=== PATIENT | male | born 1965 | race Caucasian/White ===

== ENCOUNTER 2023-08-14 12:10 | Outpatient (OUT) | payer MEDICAID, SELFPAY ==
--- NOTE | 2023-08-14 12:28 | XR_ITS ---
[place] [id number] Patient Name: JOSE VAZQUEZ MRN: [id number] date: 1965 Sex: M Assigned Patient Location: RAD Current Patient Location: [facility] Accession/Order Number: [id number] Exam Date: 08/14/2023 12:23 Report Date: 08/14/2023 15:34 At the request of: TANESHA DELGADO Procedure: XR knee LT 2V PROCEDURE: XR knee LT 2V COMPARISON: None. 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 Moderate enthesopathic spurring of the patella at the quadriceps and patellar insertions SOFT TISSUES:Negative. No visible soft tissue swelling. EFFUSION:None visible. OTHER: Negative. XR/XR knee LT 2V IMPRESSION: No acute abnormality Electronically authenticated by: COURTNEY MADDOX Date: 08/14/2023 15:34
== END 2023-08-14 12:11 | disposition home or self-care (01) ==
LOC: RAD 12:14
PROVIDERS: PCP Family Medicine; Visit Provider Family Medicine
DX: M25.562 Pain in left knee (principal); G89.29 Other chronic pain
CPT/HCPCS: 73560

== ENCOUNTER 2024-03-29 09:33 | Emergency (ER) | payer OTHER, SELFPAY ==
[2024-03-29 09:36] VITALS: BP 148/80; PULSE 84; TEMP 36.4; O2SAT 98; BMI 28.3
--- NOTE | 2024-03-29 09:42 | XR_ITS ---
The [address] [address] Patient Name: JOSE VAZQUEZ MRN: [id number] date: 1965 Sex: M Assigned Patient Location: ER Current Patient Location: ED.MAIN Accession/Order Number: [id number] Exam Date: 03/29/2024 09:52 Report Date: 03/29/2024 10:04 At the request of: YULISA SKINNER Procedure: XR foot RT min 3V PROCEDURE: XR foot RT min 3V HISTORY: injury ; lateral right foot pain since injury 5 days ago COMPARISON: None. FINDINGS: BONES:Prominent accessory ossicle lateral-plantar to the cuboid. No appreciable fracture or dislocation. Separate ossifications distal to the medial malleolus favoring sequela of remote injuries. SOFT TISSUES:No visible soft tissue swelling. EFFUSION:None visible. OTHER: Negative. XR/XR foot RT min 3V IMPRESSION: 1. No appreciable acute bone abnormality. Electronically authenticated by: KEVIN HERNANDEZ Date: 03/29/2024 10:04
--- NOTE | 2024-03-29 09:44 | ED_ITS ---
HPI HPI - Extremity Injury (Lower) General Chief Complaint: Extremity Injury, Lower Stated Complaint: LOWER EXTREMITY INJURY [facility] Time Seen by Provider: 03/29/24 09:39 Source: patient Mode of arrival: walk-in Limitations: no limitations History of Present Illness HPI Narrative: 59-year-old male presents to the emergency department for a chief complaint of right foot pain. He states he rolled it at work 4 days ago. He points to the lateral aspect and the dorsum of his foot. The ankle does not hurt and he has been able to walk on it. The pain is moderate. Related Data Allergies Allergy/AdvReac Type Severity Reaction Status Date / Time No Known Drug Allergies Allergy Verified 03/29/24 09:36 Opioid HPI Opioid Management Most Recent Pain and Opioid Data: No Data to Display Review of Systems ROS Narrative A ten point review of systems is negative except as noted above. PFSH PFSH Social History Little interest or pleasure in doing things: not at all Feeling down, depressed, or hopeless: not at all Exam Narrative Exam Narrative: Nurses note and vital signs reviewed and patient is not hypoxic. General: The patient appears well and in no apparent distress. Skin: Warm, dry, no pallor noted. There is no rash noted. Head: Normocephalic, atraumatic Eye: Normal conjunctiva, no drainage Ears, Nose, Mouth, and Throat: oral mucosa is moist. Nares patent. Cardiovascular: Regular Rate and Rhythm Respiratory: Patient is in no distress, no accessory muscle use GI: Normal bowel sounds, no tenderness to palpation, no masses appreciated. No rebound, guarding, or rigidity noted. Musculoskeletal: The right ankle is nontender. He has diffuse tenderness across the dorsum of the foot and on the lateral aspect. No break in the skin. Neurological: A&O, normal speech Psychiatric: Cooperative Constitutional Vital Signs, click to edit/add: Last Vital Signs Temp 97.6 F 03/29/24 09:36 Pulse 84 03/29/24 09:36 Resp 18 03/29/24 09:36 BP 148/80 H 03/29/24 09:36 Pulse Ox 98 03/29/24 09:36 Course Vital Signs Vital signs: Vital Signs Temperature 97.6 F 03/29/24 09:36 Pulse Rate 84 03/29/24 09:36 Respiratory Rate 18 03/29/24 09:36 Blood Pressure 148/80 H 03/29/24 09:36 Pulse Oximetry 98 03/29/24 09:36 Temperature 97.6 F 03/29/24 09:36 Pulse Rate 84 03/29/24 09:36 Respiratory Rate 18 03/29/24 09:36 Blood Pressure 148/80 H 03/29/24 09:36 Pulse Oximetry 98 03/29/24 09:36 MDM - Extremity Injury (Lower) MDM Narrative Medical decision making narrative: X-rays negative per radiologist. My clinical impression is that he has a sprained foot. Treatment diagnosis and follow-up were discussed with the patient. Differential Diagnosis Differential diagnosis: Likely other (Foot fracture, foot sprain) Imaging Data Foot x-ray: Radiologist's impression: ITS Impressions Foot X-Ray 03/29/24 09:42 IMPRESSION: 1. No appreciable acute bone abnormality. Electronically authenticated by: KEVIN HERNANDEZ Date: 03/29/2024 10:04 Discharge Plan Discharge Chief Complaint: Extremity Injury, Lower Clinical Impression: Right foot sprain Patient Disposition: Home, Self-Care Time of Disposition Decision: 10:12 Condition: Good Mode of Transportation: Private Vehicle Print Language: Burkinan Instructions: Foot Sprain (ED) Referrals: Nabeel Thornton MD [Primary Care Provider] - 1 week
--- OUTSIDE RECORDS SUMMARY | 2024-03-29 09:53 | XMS_ITS | CCD ---
Author Organization [facility] Care Team Providers Care Kennel Manager Name Role Phone Mel Fry Unavailable JOSEPHINE, PEGGY Admitting Unavailable NADERER, DR TANESHA Monroe Primary Care Unavailable JOSEPHINE, PEGGY Attending Unavailable JOSEPHINE, PEGGY Consulting Unavailable JOSEPHINE, PEGGY Admitting Unavailable NADERER, DR TANESHA Monroe Primary Care Unavailable JOSEPHINE, PEGGY Attending Unavailable JOSEPHINE, PEGGY Admitting Unavailable AICHHOLTayla, FRANCISCO DALAL Primary Care Unavailable JOSEPHINE, PEGGY Attending Unavailable ZIEBER, DR KEVIN Reid Consulting Unavailable NADERER, DR TANESHA Monroe Admitting Unavailable NADERER, DR TANESHA Monroe Attending Unavailable NADERER, DR TANESHA Monroe Primary Care Unavailable NADERER, DR TANESHA Monroe Consulting Unavailable TALBERT, DR BRANDY Alexander Consulting Unavailable ZIEBER, DR KEVIN Reid Consulting Unavailable NADERER, DR TANESHA Monroe Attending Unavailable NADERER, DR TANESHA Monroe Primary Care Unavailable NADERER, DR TANESHA Monroe Admitting Unavailable NADERER, DR TANESHA Monroe Consulting Unavailable JOSEPHINE, PEGGY Consulting Unavailable JOSEPHINE, PEGGY Admitting Unavailable NADERER, DR TANESHA Monroe Primary Care Unavailable JOSEPHINE, PEGGY Attending Unavailable JOSEPHINE, PEGGY Admitting Unavailable NADERER, DR TANESHA Monroe Primary Care Unavailable JOSEPHINE, PEGGY Attending Unavailable Sydnie Downs Unavailable TANESHA DELGADO Attending Unavailable Medications Current Medications Medication Drug Class(es) Dates Sig (Normalized) Sig (Original) acetaminophen 325 mg / butalbital 50 mg / caffeine 40 mg oral tablet (2 sources) Barbiturate, Central Nervous System Stimulant, Methylxanthine Trtzhsyrgr-ZJZJ-H affeine 50-325-40 MG take 1 tablet by mouth every 6 hours if needed for headache up to 10 days Oral for 10 Days Active dextromethorphan hydrobromide 1.5 mg/ml / pyrilamine maleate 1.5 mg/ml oral solution (2 sources) Uncompetitive E-qlvobc-J-aspartat e Receptor Antagonist, Sigma-1 Agonist Start: 06-22-2023 take 10 mL by mouth every eight hours [place] DM 7.5-7.5 MG/5ML 10 mL Orally every 8 hours for 5 days Jun, Active prednisoLONE 3 mg/ml oral solution (2 sources) Corticosteroid Start: 06-23-2023 take 10 mL by mouth twice daily prednisoLONE 15 MG/5ML 10 mL Orally BID for 5 days Jun, Active Completed/Discontinued Medications Medication Drug Class(es) Dates Sig (Normalized) Sig (Original) cephalexin 500 mg oral capsule (3 sources) Cephalosporin Antibacterial Start: 05-11-2022 take 1 capsule by mouth every eight hours Cephalexin 500 MG 1 capsule Orally three times a day for 10 day(s) May, Not-Taking/PRN cyclobenzaprine hydrochloride 10 mg oral tablet (9 sources) Muscle Relaxant Start: 08-13-2021 take 1 tablet by mouth three times daily as needed Cyclobenzaprine HCl 10 MG 1 tab(s) Orally tid prn Oct, Not-Taking/PRN Ketorolac (4 sources) Nonsteroidal Anti-inflammatory Drug, Cyclooxygenase Inhibitor Start: 01-24-2020 Toradol per 15 mg Dec, 30 mg predniSONE 20 mg oral tablet (11 sources) Start: 08-13-2021 take 1 tablet by mouth every twelve hours predniSONE 20 MG 1 tablet Orally bid for 5 day(s) Oct, Not-Taking/PRN Triamcinolone (4 sources) Corticosteroid Start: 01-24-2020 KENALOG - 10 mg Dec, 40 mg Problems Active Problems Problem Classification Problem Date Documented Da te Episodic/Chronic Other upper respiratory infections (1 source) Acute upper respiratory infection, unspecified Episodic Spondylosis; intervertebral disc disorders; other back problems (5 sources) Spondylosis without myelopathy or radiculopathy, lumbar region; Translations: [Other spondylosis with radiculopathy, lumbar region] Onset: 12-29-2021 Chronic Spondylosis; intervertebral disc disorders; other back problems (10 sources) Sciatica; Translations: [Sciatica, right side] Onset: 12-22-2021 Episodic Superficial injury; contusion (1 source) Abrasion, left lower leg, initial encounter Episodic Unclassified (4 sources) LOW BACK PAIN, UNSPECIFIED; Translations: [LOW BACK PAIN, UNSPECIFIED] Onset: 12-29-2021 Past or Other Problems Problem Classification Problem Date Documented Da te Episodic/Chronic Other connective tissue disease (4 sources) Pain in right lower leg; Translations: [PAIN IN RIGHT LOWER LEG] Onset: 02-17-2022 Episodic Sprains and strains (2 sources) Strain of muscle, fascia and tendon of lower back, initial encounter; Translations: [Strain of muscle and tendon of unspecified wall of thorax, subsequent encounter] Onset: 08-13-2021 Resolved: 11-03-2021 Episodic Unclassified (1 source) LOW BACK PAIN, UNSPECIFIED; Translations: [LOW BACK PAIN, UNSPECIFIED] Onset: 12-24-2021 Results Test Name Value Interpretation Reference Range Facil ity US LC DOP LEG RTon 02-19-20 US LC DOP LEG RT EXAMINATION: US LC DOP LEG RT HISTORY: Pain of right lower leg ; right calf swelling COMPARISON: No relevant comparison available. FINDINGS: REGION: Right lower extremity THROMBI: None. COMPRESSIBILITY: Normal compressibility. FLOW: Normal waveform and antegrade flow between 5 and 20 cm/s. OTHER: None. IMPRESSION: 1. No deep vein thrombus within the right lower extremity. Electronically authenticated by: KEVIN HERNANDEZ Date: 2022-02-18 06:23 Normal [facility] XR CSPINE 2_3 VIEWSon 2021 XR CSPINE 2_3 VIEWS EXAMINATION: XR CSPINE 2_3 VIEWS HISTORY: Neck pain , chronic; right leg pain COMPARISON: No relevant comparison available. FINDINGS: BONES: Slight reversal of the normal lordotic curvature. No fracture or significant spondylolisthesis. Minimal degenerative facet arthropathy. DISC SPACES: Suspect mild narrowing C5-C6 and C6-C7. PARASPINOUS: Negative. No paraspinous abnormality is seen. OTHER: Negative. IMPRESSION: 1. Reversal of normal lordotic curvature; positioning versus muscle spasm. 2. Suspect mild degenerative disc disease C5-C6 and C6-C7. Electronically authenticated by: KEVIN HERNANDEZ Date: 2021-12-22 14:39 Normal [facility] Vital Signs Date Time Vital Sign Value Performing Clinician Facility 06-22-2023 15:05-0500 Body height 182.88 cm Sydnie Downs Other [facility] Other 06-22-2023 15:05-0500 Body mass index (BMI) [Ratio] 36.8 kg/m2 Sydnie Downs Other [facility] Other 06-22-2023 15:05-0500 Body temperature 101 [degF] Sydnie Downs Other [facility] Other 06-22-2023 15:05-0500 Body weight 123.11 kg Sydnie Downs Other [facility] Other 06-22-2023 15:05-0500 Respiratory rate 18 /min Sydnie Downs Other [facility] Other 06-22-2023 15:05-0500 SaO2% (BldA) [Mass fraction] 97 % Sydnie Downs Other [facility] Other 05-11-2022 14:00-0500 Body height 182.88 cm Mel Fry Other [facility] Other 05-11-2022 14:00-0500 Body mass index (BMI) [Ratio] 39.19 kg/m2 Mel Lisandra Other [facility] Other 05-11-2022 14:00-0500 Body temperature 97.4 [degF] Mel Lisandra Other [facility] Other 05-11-2022 14:00-0500 Body weight 131.09 kg Mel Fry Other [facility] Other 05-11-2022 14:00-0500 Diastolic blood pressure 69 mm[Hg] Mel Lisandra Other [facility] Other 05-11-2022 14:00-0500 Respiratory rate 18 /min Mel Lisandra Other [facility] Other 05-11-2022 14:00-0500 SaO2% (BldA) [Mass fraction] 96 % Mel Lisandra Other [facility] Other 05-11-2022 14:00-0500 Systolic blood pressure 124 mm[Hg] Mel Lisandra Other [facility] Other 11-03-2021 12:05-0400 Body height 182.88 cm Mel Lisandra Other [facility] Other 11-03-2021 12:05-0400 Body mass index (BMI) [Ratio] 39.19 kg/m2 Mel Lisandra Other [facility] Other 11-03-2021 12:05-0400 Body temperature 98.7 [degF] Mel Lisandra Other [facility] Other 11-03-2021 12:05-0400 Body weight 131.09 kg Mel Lisandra Other [facility] Other 11-03-2021 12:05-0400 Diastolic blood pressure 81 mm[Hg] Mel Lisandra Other [facility] Other 11-03-2021 12:05-0400 Respiratory rate 18 /min Mel Lisandra Other [facility] Other 11-03-2021 12:05-0400 SaO2% (BldA) [Mass fraction] 97 % Mel Lisandra Other [facility] Other 11-03-2021 12:05-0400 Systolic blood pressure 131 mm[Hg] Mel Lisandra Other [facility] Other 08-13-2021 11:20-0500 Body height 182.88 cm Mel Lisandra Other [facility] Other 08-13-2021 11:20-0500 Body mass index (BMI) [Ratio] 39.33 kg/m2 Mel Lisandra Other [facility] Other 08-13-2021 11:20-0500 Body temperature 97.7 [degF] Mel Lisandra Other [facility] Other 08-13-2021 11:20-0500 Body weight 131.54 kg Mel Lisandra Other [facility] Other 08-13-2021 11:20-0500 Diastolic blood pressure 83 mm[Hg] Mel Lisandra Other [facility] Other 08-13-2021 11:20-0500 Respiratory rate 18 /min Mel Lisandra Other [facility] Other 08-13-2021 11:20-0500 SaO2% (BldA) [Mass fraction] 99 % Mel Lisandra Other [facility] Other 08-13-2021 11:20-0500 Systolic blood pressure 144 mm[Hg] Mel Lisandra Other [facility] Other Encounters Encounter Date Encounter Type Care Provider Facility Start: 07-27-2023 End: 07-27-2023 ambulatory TANESHA DELGADO Not Available Start: 06-23-2023 End: 06-23-2023 ambulatory Sydnie Downs Other [facility] Other Start: 06-23-2023 Telephone encounter Sydnie Downs [facility] Start: 06-22-2023 End: 06-22-2023 ambulatory Sydnie Himanshu Other [facility] Other Start: 06-22-2023 Office outpatient vi sit 25 minutes Sydnie Downs [facility] Start: 05-11-2022 End: 05-11-2022 ambulatory Mel Fry Other [facility] Other Start: 05-11-2022 Office outpatient vi sit 15 minutes Mel Fry [facility] Start: 02-17-2022 End: 02-18-[address] KEVIN HERNANDEZ Facility:[facility] Start: 01-25-2022 ambulatory PEGGY JOSEPHINE Facility :[facility] Start: 01-18-2022 End: 01-19-2022 ambulatory PEGGY JOSEPHINE Facility:[facility] Start: 12-31-2021 End: 01-12-2022 ambulatory PEGGY JOSEPHINE Facility:[facility] Start: 12-24-2021 End: 12-25-2021 ambulatory PEGGY JOSEPHINE Facility:[facility] Start: 12-22-2021 End: 12-23-[address] KEVIN HERNANDEZ Facility:[facility] Start: 11-19-2021 ambulatory PEGGY JOSEPHINE Facility :[facility] Start: 11-03-2021 ([facility] Mel Fry [facility] Start: 11-03-2021 End: 11-03-2021 ambulatory Mel Fry Other [facility] Other Start: 08-13-2021 End: 08-13-2021 ambulatory Mel Fry Other [facility] Other Start: 08-13-2021 Office outpatient vi sit 15 minutes Mel Lisandra [facility] Payers Date Payer Category Payer Medicaid [id number] 2. [id number] 1965 Unknown [id number] 2.16.84 [id number] 1965 Unknown [id number] 2.16.84 [id number] 1965 Unknown [id number] 2.16.84 [id number] 1965 Unknown [id number] 2.16.84 [id number] 1965 Unknown [id number] 2.16.84 [id number] 1965 Unknown [id number] 2.16.84 [id number] 1965 Unknown [id number] 2.16.84 [id number] 1965 Unknown [id number] 2.16.84 [id number] 1958 [facility] [id number] 1958 Unknown [id number] 2.1 [id number] 1958 Unknown [id number] Social History Date Type Detail Facility Unknown if ever smoked [facility] Other Sex Assigned At Sex Assigned At Bir th [facility] Other Evaluation note 06-22-2023 Note Date & Type Note Facility 06-22-2023 Evaluation note Encounter Date Diagnosis Assessment Notes Jun, Viral URI with cough (ICD-10 - J06.9) Patient declines/refuses COVID/influenza testing today in office. Advised patient that we will treat as viral URI. Will send in Rx of prednisone and [place] to use as directed. Encouraged supportive care as directed, increase fluids and rest, Tylenol as directed, cool mist humidifier, throat lozenges. Discussed infection control practices such as good hand washing and mask wearing. Advised patient that he needs to stay home from work/activities until fever free for 24 hours. Patient to follow up with PCP if symptoms persist or worsen despite treatment. Immediate eval for SOB, difficulty breathing, chest pain, fevers that do not break with antipyretic or any other concerning symptoms as reviewed on patient education handout. Patient verbalizes understanding and is agreeable to treatment plan. Patient left in stable condition. [facility] Other Evaluation note 05-11-2022 Note Date & Type Note Facility 05-11-2022 Evaluation note Encounter Date Diagnosis Assessment Notes May, Abrasion, left lower leg, initial encounter (ICD-10 - S80.812A) Keep the wound clean and dry. Take the cephalexin as prescribed until gone. Apply antibiotic ointment to the wound daily. Leave the wound open when you are home, cover when you are at work. Take Tylenol or Motrin as needed for aches pains or fevers. Follow-up with your family physician if no improvement in 2 to 3 days May, Other Abrasion home care material was printed [facility] Other Evaluation note 11-03-2021 Note Date & Type Note Facility 11-03-2021 Evaluation note Encounter Date Diagnosis Assessment Notes October, Thoracic myofascial strain, subsequent encounter (ICD-10 - S29.019D) Follow-up with your primary care physician regarding short-term disability and further evaluation of your pain. Patient reports he has dropped this is a Workmen's Comp. claim. He states this is a chronic problem. He plans to follow-up with his primary care physician for further evaluation. [facility] Other Evaluation note 08-13-2021 Note Date & Type Note Facility 08-13-2021 Evaluation note Encounter Date Diagnosis Assessment Notes Aug, Strain of lumbar region, initial encounter (ICD-10 - S39.012A) Drink plenty fluids, get plenty of rest. Take the prednisone as prescribed until gone. Take the Flexeril as prescribed as needed for back pain and stiffness. Limit your lifting and bending. Off work until Monday. Follow-up with your family physician if no improvement in 2 to 3 days. Go to the ER for worsening symptoms or concerns [facility] Other Evaluation note Note Date & Type Note Facility Evaluation note No Information [employer] Other History general Narrative - Reported Note Date & Type Note Facility History general Narrative - Reported Type Surgical History tonsillectomy Hospitalization History see above [facility] Other Summary Purpose Family History No Family History Records FoundNo Family History Records Found Advance Directives No Advanced Directives Records FoundNo Advanced Directives Records Found Additional Source Comments REASON FOR VISIT (unrecogniz ed section and content) RIGHT UPPER BACK PAIN RADIAT ING DOWN TO LEGF/U BWCLASERATION ON LOWER LEGNo InformationCOUGH, CANT GET RID OF, SORE THROAT, (unrecognized sect ion and content) No Status Records FoundNo Status Records Found INFORMATION SOURCE (unrecogn ized section and content) DATE CREATED AUTHOR 06/08/2022 [facility] DATE CREATED AUTHOR 'S ORGANIZ ATION 07/29/2023 [facility] FOR RECORDS PERTAINING TO PATIENTS WHO ARE OR HAVE BEEN ENROLLED IN A CHEMICAL DEPENDENCY/SUBSTANCEABUSE PROGRAM, SOME INFORMATION MAY BE OMITTED. This clinical summary was aggregated from multiple sources. Caution should be exercised in using it in the provision of clinical care. This summary normalizes information from multiple sources, and as a consequence, information in this document may materially change the coding, format and clinical context of patient data. In addition, data may be omitted in some cases. CLINICAL DECISIONS SHOULD BE BASED ON THE PRIMARY CLINICAL RECORDS. [facility] [employer] [facility]. provides no warranty or guarantee of the accuracy or completeness of information in this document.
== END 2024-03-29 10:19 | disposition home or self-care (01) ==
PROVIDERS: Emergency Provider Emergency Medicine; PCP Family Medicine
DX: S93.601A Unspecified sprain of right foot, initial encounter (principal); X50.9XXA Other and unspecified overexertion or strenuous movements or postures, initial encounter
CPT/HCPCS: 73630; 99283